=== PATIENT | male | born 1945 | race Caucasian/White ===

== ENCOUNTER 2018-06-28 09:13 | Emergency (ER) | payer OTHER ==
--- NOTE | 2018-06-28 09:41 | EDPHY ---
H & P Stated Complaint: Pt has upper ant L thigh mass, grown since 2012, impacting bladder Time Seen by Provider: 06/28/18 09:26 HPI/ROS: CHIEF COMPLAINT: Abdominal swelling, suprapubic fullness, leg edema HISTORY OF PRESENT ILLNESS: The patient is referred to the emergency department from his primary care provider's office for evaluation of 10 days of acute left leg swelling and suprapubic fullness. The patient denies any chest pain or shortness of breath. The patient has had fairly infrequent evaluations by his primary care provider over the past several years. His past medical history is most significant for anxiety. The patient denies any fever, cough or congestion. He denies history of fall or trauma. The patient denies any complaints of dysuria. REVIEW OF SYSTEMS: A comprehensive 10 point review of systems is otherwise negative aside from elements mentioned in the history of present illness. Source: Patient Exam Limitations: No limitations - Personal History Current Tetanus/Diphtheria Vaccine: Unsure - Medical/Surgical History Hx Asthma: No Hx Chronic Respiratory Disease: No Hx Diabetes: No Hx Cardiac Disease: No Hx Renal Disease: No Hx Cirrhosis: No Hx Alcoholism: No Hx HIV/AIDS: No Hx Splenectomy or Spleen Trauma: No Other PMH: tonsilectemy - Social History Smoking Status: Current every day smoker - Physical Exam Exam: General Appearance: Alert, no distress Eyes: Pupils equal and round no pallor or injection ENT, Mouth: Mucous membranes moist Respiratory: There are no retractions, lungs are clear to auscultation Cardiovascular: Regular rate and rhythm Gastrointestinal: Suprapubic fullness Neurological: 5/5 strength noted all 4 extremities Skin: Warm and dry, no rashes Musculoskeletal: Neck is supple nontender Extremities: Significant left lower extremity swelling Constitutional: Initial Vital Signs Temperature (C) 36.5 C 06/28/18 09:19 Heart Rate 89 06/28/18 09:19 Respiratory Rate 16 06/28/18 09:19 Blood Pressure 144/88 H 06/28/18 09:19 O2 Sat (%) 95 06/28/18 09:19 O2 Delivery Mode Room Air Allergies/Adverse Reactions: No Known Allergies Allergy (Verified 06/28/18 09:19) Home Medications: Medication Instructions Recorded Azithromycin [Zithromax] 250 mg PO DAILY #4 tab 11/08/13 levOFLOXACIN [Levaquin] 500 mg PO DAILY #10 tab 06/28/18 Medical Decision Making - Diagnostics Imaging Results: Imaging Impressions Extremity Venous Study 06/28/18 09:44 Impression: 1. There is no sonographic evidence of deep or superficial vein thrombosis in the left lower extremity. 2. Left lower extremity extensive subcutaneous edema. 3. Left groin lymphadenitis, likely reactive. Findings were discussed with Jose Fuentes MD at 10:20, on 06/28/2018. Abdomen CT 06/28/18 10:22 Impression: 1. Severe bladder wall thickening with a Carr catheter in place. Possible bladder diverticulum posterolaterally to the right with a defect in the posterolateral right bladder wall through the severe thickening. The severe thickening could be cystitis or tumor. There is obstruction of the distal left ureter with moderate left hydroureter and hydronephrosis. 2. Nonspecific calcified soft tissue mass posterior to the bladder above the prostate and another calcified mass in the posterior pelvis anterior to the sacrum. 3. No evidence for obstructing mass or abnormal fluid collection along the external iliac vein or common femoral vein. 4. Other chronic findings as above. Results called and discussed with Dr. Jose Fuentes on 06/28/2018, 11:48. ED Course/Re-evaluation: Patient presents to the ED with leg swelling and abdominal distention. The patient was noted to have a markedly distended bladder on bedside ultrasound. A Carr catheter was placed on 3 L were drained. Leg ultrasound demonstrated no evidence of a DVT. CT scan of the abdomen pelvis does demonstrate abnormalities noted with the bladder possible bladder diverticulum and cystitis. Underlying malignancy cannot be excluded. The patient is noted to have a normal creatinine. I did consult with Dr. Mccord from Urology who recommends discharged home with a Carr catheter. Initiation of antibiotics pending urine culture and outpatient urology follow-up. I reviewed his ER workup with Dr. Mahan who will see the patient in follow-up. Patient has been instructed to return to the ED for markedly worsening symptoms , pain, fever or vomiting. He is given the number of our on-call urologist. He is advised to follow up with Dr. Mahan next week for recheck. Differential Diagnosis: Differential diagnosis considered includes urinary retention, bladder malignancy , cystitis, prostatitis, DVT, arterial thrombosis, intra-abdominal mass/ malignancy - Data Points Laboratory Results: Laboratory Results 06/28/18 09:59 06/28/18 09:59 06/28/18 06/28/18 06/28/18 09:59 09:59 09:40 WBC 8.04 10^3/uL 10^3/uL (3.80-9.50) RBC 3.38 10^6/uL L 10^6/uL (4.40-6.38) Hgb 9.4 g/dL L g/dL (13.7-17.5) Hct 29.7 % L % (40.0-51.0) MCV 87.9 fL fL (81.5-99.8) MCH 27.8 pg L pg (27.9-34.1) MCHC 31.6 g/dL L g/dL (32.4-36.7) RDW 15.9 % H % (11.5-15.2) Plt Count 341 10^3/uL 10^3/uL (150-400) MPV 8.3 fL L fL (8.7-11.7) Neut % (Auto) 75.9 % H % (39.3-74.2) Lymph % (Auto) 9.7 % L % (15.0-45.0) [place] % (Auto) 10.0 % % (4.5-13.0) Eos % (Auto) 3.5 % % (0.6-7.6) Baso % (Auto) 0.5 % % (0.3-1.7) Nucleat RBC Rel Count 0.0 % % (0.0-0.2) Absolute Neuts (auto) 6.11 10^3/uL 10^3/uL (1.70-6.50) Absolute Lymphs (auto) 0.78 10^3/uL L 10^3/uL (1.00-3.00) Absolute Monos (auto) 0.80 10^3/uL 10^3/uL (0.30-0.80) Absolute Eos (auto) 0.28 10^3/uL 10^3/uL (0.03-0.40) Absolute Basos (auto) 0.04 10^3/uL 10^3/uL (0.02-0.10) Absolute Nucleated RBC 0.00 10^3/uL 10^3/uL (0-0.01) Immature Gran % 0.4 % % (0.0-1.1) Immature Gran # 0.03 10^3/uL 10^3/uL (0.00-0.10) Sodium 137 mEq/L mEq/L (135-145) Potassium 4.3 mEq/L mEq/L (3.5-5.2) Chloride 104 mEq/L mEq/L (97-110) Carbon Dioxide 23 mEq/l mEq/l (22-31) Anion Gap 10 mEq/L mEq/L (6-14) BUN 21 mg/dL mg/dL (7-23) Creatinine 1.2 mg/dL mg/dL (0.7-1.3) Estimated GFR 59 Glucose 80 mg/dL mg/dL (70-100) Calcium 9.2 mg/dL mg/dL (8.5-10.4) Urine Color YELLOW Urine Appearance CLEAR Urine pH 5.0 (5.0-7.5) Ur Specific [place] 1.014 (1.002-1.030) Urine Protein NEGATIVE (NEGATIVE) Urine Ketones NEGATIVE (NEGATIVE) Urine Blood 1+ H (NEGATIVE) Urine Nitrate NEGATIVE (NEGATIVE) Urine Bilirubin NEGATIVE (NEGATIVE) Urine Urobilinogen NEGATIVE EU EU (0.2-1.0) Ur Leukocyte Esterase TRACE H (NEGATIVE) Urine RBC 10-15 /hpf H /hpf (0-3) Urine WBC 15-25 /hpf H /hpf (0-3) Ur Epithelial Cells TRACE /lpf /lpf (NONE-1+) Urine Mucus TRACE /lpf /lpf (NONE-1+) Urine Glucose NEGATIVE (NEGATIVE) Departure - Departure Disposition: Home, Routine, Self-Care Clinical Impression: Urinary retention, Leg edema Condition: Good Instructions: Urinary Retention in Men (ED) Additional Instructions: 1. Please schedule a follow-up appointment with the urologist you have been referred to. They would like to see you in the next 2 weeks. Carr catheter will remain in place until that time. 2. Please begin antibiotics pending the results of your urine culture. 3. Please schedule a follow-up appointment with Dr. Mahan to be seen in the next week. 4. Return to the ED for markedly worsening symptoms, pain, fever or vomiting. Referrals: Rafaela Bedoya MD [Primary Care Provider] - As per Instructions Kyree Mccord MD [Medical Doctor] - As per Instructions
[2018-06-28 10:09] LABS: PLATELET COUNT 341 10^3/uL (150-400)
[2018-06-28] MEDS ORDERED: IOPAMIDOL (ISOVUE-370) 150 ML BTL IV ONE (11:05)
[2018-06-28 13:10] VITALS: BP 131/77
== END 2018-06-28 13:10 | disposition home or self-care (01) ==
DX: R33.9 Retention of urine, unspecified (principal); R60.9 Edema, unspecified; I88.9 Nonspecific lymphadenitis, unspecified; F17.200 Nicotine dependence, unspecified, uncomplicated
CPT/HCPCS: 51702; 51798; 74177; 93971; 99285; Q9967

== ENCOUNTER → 2018-07-22 | Outpatient (CLI) | payer OTHER | LOC: FIMAGING 09:54 ==